=== PATIENT | male | born 1950 | race Caucasian/White ===

== ENCOUNTER 2017-02-01 06:27 | Day surgery (SDC) | payer MEDICARE, BC ==
[2017-02-01] MEDS ORDERED: Lactated Ringers 1,000 ML IV SCH (07:00)
[2017-02-01] MEDS ORDERED: Midazolam 1 MG/ML 2 ML SDV ONE (07:12)
[2017-02-01] MEDS ORDERED: Propofol 200 MG/20 ML SDV ONE (07:12)
[2017-02-01] MEDS ORDERED: fentaNYL 100 MCG/2 ML SDV ONE (07:12)
[2017-02-01 09:37] VITALS: BP 106/65
--- NOTE | 2017-02-01 11:36 | OR ---
DATE OF PROCEDURE: 02/01/2017 POSTOPERATIVE DIAGNOSIS: History of colon polyps. POSTOPERATIVE DIAGNOSES: Unremarkable colonoscopy, history of colon polyps. PROCEDURE PERFORMED: Colonoscopy to the cecum. ANESTHESIA: IV anesthesia with monitored anesthesia care. INDICATION: This 66-year-old white male is referred for a colonoscopy because of history of colon polyps. His last colonoscopic exam he says was done about five years ago. I counseled him for the procedure including risks and alternatives, and he gave his informed consent to proceed. DESCRIPTION OF PROCEDURE: The patient was placed in the left lateral decubitus position. IV anesthesia was administered by the Anesthesia Service. Time-out was held. A rectal exam was performed, which was unremarkable. The flexible video Olympus colonoscope was introduced through his anus, up his rectum, and out his colon all the way to the cecum. Once the cecum was reached, the scope was slowly withdrawn, examining the mucosa throughout. No mucosal abnormalities were noted. The scope was retroflexed in the rectum with the distal rectum appearing unremarkable except for some minor hemorrhoidal tissue. The scope was straightened and removed. He tolerated the procedure well. Arthur Robbins MD /[id number] [email or web address]
== END 2017-02-01 10:10 | disposition home or self-care (01) ==
LOC: JP.SDS 06:27
PROVIDERS: ATTEND Surgery
DX: Z12.11 Encounter for screening for malignant neoplasm of colon (principal); I25.10 Atherosclerotic heart disease of native coronary artery without angina pectoris; I10 Essential (primary) hypertension; Z95.1 Presence of aortocoronary bypass graft
CPT/HCPCS: G0105; J2250; J2704; J3010; J7120

== ENCOUNTER 2020-09-09 10:10 | Emergency (ER) | payer MEDICARE ==
[2020-09-09 10:16] VITALS: BP 104/62; PULSE 81
[2020-09-09] MEDS ORDERED: Sodium Chloride 0.9% 10 ML Syringe FLUSH PRN (10:37)
[2020-09-09] MEDS ORDERED: Ketorolac 30 MG/ML SDV IVPUSH ONE (10:39)
[2020-09-09] MEDS ORDERED: Ondansetron 4 MG/2 ML SDV IVPUSH ONE (10:42)
[2020-09-09] MEDS ORDERED: Lactated Ringers 1,000 ML IV SCH (10:45)
--- NOTE | 2020-09-09 10:45 | EDM.PDOC ---
ED HPI GENERAL MEDICAL PROBLEM - General Chief Complaint: General Stated Complaint: ILL Time Seen by Provider: 09/09/20 10:23 Source of Information: Reports: Patient, RN Notes Reviewed History Limitations: Reports: No Limitations - History of Present Illness INITIAL COMMENTS - FREE TEXT/NARRATIVE: 70-year-old gentleman presents emergency department with a with a syncopal event he is also having other symptoms he was recently diagnosed with COVID-19 approximately 1 week ago yesterday syncopal event for sitting down eating then stood up suddenly fell to the ground estimate he was out for 1 to 2 minutes was not visibly shaking per bystanders. He did admit to feeling significantly nauseated prior to this event, he is also having back pain predominantly left- sided midclavicular line. - Related Data Allergies Allergy/AdvReac Type Severity Reaction Status Date / Time Penicillins Allergy Other Verified 02/01/17 07:25 Sulfa (Sulfonamide Allergy Other Verified 02/01/17 07:25 Antibiotics) Home Meds: Home Meds Aspirin [Adult Low Dose Aspirin EC] 81 mg PO DAILY 01/28/17 [History] Cholecalciferol (Vitamin D3) [Vitamin D3] 1 tab PO BID 01/28/17 [History] Cinnamon [Cinnamon Oil] 1 tab PO DAILY 01/28/17 [History] Metoprolol Succinate [Toprol Xl] 50 mg PO DAILY 01/28/17 [History] Simvastatin [Zocor] 40 mg PO DAILY 01/28/17 [History] glipiZIDE [Glipizide ER] 10 mg PO DAILY 01/28/17 [History] lisinopriL [Prinivil] 2.5 mg PO DAILY 01/28/17 [History] metFORMIN [Glucophage] 1,000 mg PO BID 01/28/17 [History] Past Medical History HEENT History: Reports: Impaired Vision Cardiovascular History: Reports: High Cholesterol, Hypertension Endocrine/Metabolic History: Reports: Diabetes, Type II - Infectious Disease History Infectious Disease History: Reports: Chicken Pox, Measles, Mumps - Past Surgical History Cardiovascular Surgical History: Reports: Coronary Artery Bypass Musculoskeletal Surgical History: Reports: Arthroscopic Knee Social & Family History - Tobacco Use Tobacco Use Status *Q: Never Tobacco User - Caffeine Use Caffeine Use: Reports: Coffee - Recreational Drug Use Recreational Drug Use: No ED ROS GENERAL - Review of Systems Review Of Systems: See Below Constitutional: Reports: Fever, Weakness, Other (Body aches) HEENT: Reports: No Symptoms Respiratory: Reports: No Symptoms Cardiovascular: Reports: Chest Pain (Back midclavicular line left side) GI/Abdominal: Reports: Nausea Musculoskeletal: Reports: Muscle Pain ED EXAM, GENERAL - Physical Exam Exam: See Below Exam Limited By: No Limitations General Appearance: Alert, WD/WN, No Apparent Distress Respiratory/Chest: No Respiratory Distress, Lungs Clear, Normal Breath Sounds, No Accessory Muscle Use, Chest Non-Tender Cardiovascular: Regular Rate, Rhythm, No Murmur Back Exam: Normal Inspection, Full Range of Motion, CVA Tenderness (L), Paraspinal Tenderness. No: CVA Tenderness (R), Muscle Spasm, Vertebral Tenderness Course - Vital Signs Last Recorded V/S: Last Vital Signs Temp 97.5 F 09/09/20 10:14 Pulse 81 09/09/20 10:14 Resp 20 09/09/20 10:14 BP 104/62 09/09/20 10:14 Pulse Ox 96 09/09/20 10:14 - Orders/Labs/Meds Orders: Active Orders 24 hr Category Date Time Status EKG Documentation Completion [RC] ASDIRECTED Care 09/09/20 10:40 Active Peripheral IV Care [RC] . DIRECTED Care 09/09/20 10:38 Active Chest 1V Frontal [CR] Stat Exams 09/09/20 10:39 Taken Lactated Ringers [Ringers, Lactated] 1,000 ml Med 09/09/20 10:45 Active IV ASDIRECTED Sodium Chloride 0.9% [Saline Flush] Med 09/09/20 10:37 Active 10 ml FLUSH ASDIRECTED PRN Isolation [COMM] Stat Oth 09/09/20 10:37 Ordered Peripheral IV Insertion Adult [OM.PC] Routine Oth 09/09/20 10:37 Ordered EKG 12 Lead [EK] Stat Ther 09/09/20 10:39 Ordered Medication Orders Lactated Ringer's (Ringers, Lactated) 1,000 mls @ 999 mls/hr IV ASDIRECTED REAL Last Admin: 09/09/20 11:02 Dose: 999 mls/hr Documented by: TACHO Sodium Chloride (Saline Flush) 10 ml FLUSH ASDIRECTED PRN PRN Reason: Keep Vein Open Last Admin: 09/09/20 11:04 Dose: 10 ml Documented by: TACHO Labs: Laboratory Tests 09/09/20 09/09/20 09/09/20 Range/Units 10:41 10:50 10:50 WBC 4.7 (4.5-11.0) K/uL RBC 5.05 (4.30-5.90) M/uL Hgb 15.3 H (12.0-15.0) g/dL Hct 44.4 (40.0-54.0) % MCV 88 (80-98) fL MCH 30 (27-31) pg MCHC 35 (32-36) % Plt Count 97 L (150-400) K/uL Neut % (Auto) 62 (36-66) % Lymph % (Auto) 23 L (24-44) % [place] % (Auto) 15 H (2-6) % Eos % (Auto) 0 L (2-4) % Baso % (Auto) 0 (0-1) % Sodium 127 L (140-148) mmol/L Potassium 4.6 (3.6-5.2) mmol/L Chloride 93 L (100-108) mmol/L Carbon Dioxide 24 (21-32) mmol/L Anion Gap 14.6 H (5.0-14.0) mmol/L BUN 29 H (7-18) mg/dL Creatinine 1.2 (0.8-1.3) mg/dL Est Cr Clr Drug Dosing 48.40 mL/min Estimated GFR (MDRD) 60 (>60) Glucose 129 H (74-106) mg/dL Lactic Acid (0.4-2.0) mmol/L Calcium 8.8 (8.5-10.1) mg/dL Total Bilirubin 0.8 (0.2-1.0) mg/dL Direct Bilirubin 0.22 H (0.0-0.2) mg/dL Indirect Bilirubin 0.58 AST 24 (15-37) U/L ALT 29 (12-78) U/L Alkaline Phosphatase 49 (46-116) U/L Lactate Dehydrogenase 252 H (85-227) U/L Troponin I (0.000-0.056) ng/mL C-Reactive Protein 2.69 H (0.0-0.3) mg/dL Total Protein 7.0 (6.4-8.2) g/dL Albumin 3.4 (3.4-5.0) g/dL Globulin 3.6 H (2.3-3.5) g/dL Albumin/Globulin Ratio 0.9 L (1.2-2.2) Urine Color Yellow (YELLOW) Urine Appearance Clear (CLEAR) Urine pH 5.5 (5.0-8.0) Ur Specific [place] 1.020 (1.008-1.030) Urine Protein Trace H (NEGATIVE) mg/dL Urine Glucose (UA) 500 H (NEGATIVE) mg/dL Urine Ketones 40 H (NEGATIVE) mg/dL Urine Occult Blood Negative (NEGATIVE) Urine Nitrite Negative (NEGATIVE) Urine Bilirubin Negative (NEGATIVE) Urine Urobilinogen 0.2 (0.2-1.0) EU/dL Ur Leukocyte Esterase Negative (NEGATIVE) Urine RBC Not seen (0-5) Urine WBC 0-5 (0-5) Ur Epithelial Cells Not seen Amorphous Sediment Not seen Urine Bacteria Not seen Urine Mucus Moderate 09/09/20 09/09/20 Range/Units 10:50 10:50 WBC (4.5-11.0) K/uL RBC (4.30-5.90) M/uL Hgb (12.0-15.0) g/dL Hct (40.0-54.0) % MCV (80-98) fL MCH (27-31) pg MCHC (32-36) % Plt Count (150-400) K/uL Neut % (Auto) (36-66) % Lymph % (Auto) (24-44) % [place] % (Auto) (2-6) % Eos % (Auto) (2-4) % Baso % (Auto) (0-1) % Sodium (140-148) mmol/L Potassium (3.6-5.2) mmol/L Chloride (100-108) mmol/L Carbon Dioxide (21-32) mmol/L Anion Gap (5.0-14.0) mmol/L BUN (7-18) mg/dL Creatinine (0.8-1.3) mg/dL Est Cr Clr Drug Dosing mL/min Estimated GFR (MDRD) (>60) Glucose (74-106) mg/dL Lactic Acid 1.4 (0.4-2.0) mmol/L Calcium (8.5-10.1) mg/dL Total Bilirubin (0.2-1.0) mg/dL Direct Bilirubin (0.0-0.2) mg/dL Indirect Bilirubin AST (15-37) U/L ALT (12-78) U/L Alkaline Phosphatase (46-116) U/L Lactate Dehydrogenase (85-227) U/L Troponin I < 0.017 (0.000-0.056) ng/mL C-Reactive Protein (0.0-0.3) mg/dL Total Protein (6.4-8.2) g/dL Albumin (3.4-5.0) g/dL Globulin (2.3-3.5) g/dL Albumin/Globulin Ratio (1.2-2.2) Urine Color (YELLOW) Urine Appearance (CLEAR) Urine pH (5.0-8.0) Ur Specific [place] (1.008-1.030) Urine Protein (NEGATIVE) mg/dL Urine Glucose (UA) (NEGATIVE) mg/dL Urine Ketones (NEGATIVE) mg/dL Urine Occult Blood (NEGATIVE) Urine Nitrite (NEGATIVE) Urine Bilirubin (NEGATIVE) Urine Urobilinogen (0.2-1.0) EU/dL Ur Leukocyte Esterase (NEGATIVE) Urine RBC (0-5) Urine WBC (0-5) Ur Epithelial Cells Amorphous Sediment Urine Bacteria Urine Mucus Meds: Medications Generic Name Dose Route Start Last Admin Trade Name Freq PRN Reason Stop Dose Admin Lactated Ringer's 1,000 mls @ 999 mls/hr 09/09/20 10:45 09/09/20 11:02 Ringers, Lactated IV 999 mls/hr ASDIRECTED REAL Administration Sodium Chloride 10 ml 09/09/20 10:37 09/09/20 11:04 Saline Flush FLUSH 10 ml ASDIRECTED PRN Administration Keep Vein Open Discontinued Medications Generic Name Dose Route Start Last Admin Trade Name Freq PRN Reason Stop Dose Admin Ketorolac Tromethamine 30 mg 09/09/20 10:39 09/09/20 11:01 Toradol IVPUSH 09/09/20 10:40 30 mg ONETIME ONE Administration Ondansetron HCl 4 mg 09/09/20 10:42 09/09/20 11:02 Zofran IVPUSH 09/09/20 10:43 4 mg ONETIME ONE Administration Departure - Departure Time of Disposition: 12:20 Disposition: Home, Self-Care 01 Condition: Fair Clinical Impression: Syncope Qualifiers: Syncope type: unspecified Qualified Code(s): R55 - Syncope and collapse - Discharge Information Instructions: Syncope, [id number] Referrals: Sally Byrnes PA [Primary Care Provider] - Forms: ED Department Discharge Additional Instructions: Continue with your current medications, try Tylenol or Motrin as needed for body aches, continue self quarantine, please followup with your primary care provider in 5-7 days if not better, please call return to the emergency department with worsening of symptoms. Sepsis Event Note (ED) - Evaluation Sepsis Screening Result: No Definite Risk - Focused Exam Vital Signs: Vital Signs Temp Pulse Resp BP Pulse Ox 09/09/20 10:14 97.5 F 81 20 104/62 96 - My Orders Last 24 Hours: My Active Orders 09/09/20 10:37 Sodium Chloride 0.9% [Saline Flush] 10 ml FLUSH ASDIRECTED PRN Isolation [COMM] Stat Peripheral IV Insertion Adult [OM.PC] Routine 09/09/20 10:38 Peripheral IV Care [RC] . DIRECTED 09/09/20 10:39 Chest 1V Frontal [CR] Stat EKG 12 Lead [EK] Stat 09/09/20 10:40 EKG Documentation Completion [RC] ASDIRECTED 09/09/20 10:45 Lactated Ringers [Ringers, Lactated] 1,000 ml IV ASDIRECTED - Assessment/Plan Last 24 Hours: My Active Orders 09/09/20 10:37 Sodium Chloride 0.9% [Saline Flush] 10 ml FLUSH ASDIRECTED PRN Isolation [COMM] Stat Peripheral IV Insertion Adult [OM.PC] Routine 09/09/20 10:38 Peripheral IV Care [RC] . DIRECTED 09/09/20 10:39 Chest 1V Frontal [CR] Stat EKG 12 Lead [EK] Stat 09/09/20 10:40 EKG Documentation Completion [RC] ASDIRECTED 09/09/20 10:45 Lactated Ringers [Ringers, Lactated] 1,000 ml IV ASDIRECTED Plan: Assessment Acuity = acute Site and laterality = syncopal event complicated patient with known history of COVID-19 Etiology = unknown Manifestations = none Location of injury = Home Lab values = CBC unremarkable sodium low at 127 consistent hyponatremia lactic acid normal 1.4 LDH slightly elevated 252 troponin is negative CRP slightly elevated 2.69 urinalysis reveals a specific gravity 1.02 consistent with intravascular volume depletion, chest x-ray I did review films myself I cannot appreciate any acute process, the official read from radiology is pending, EKG demonstrates a sinus rhythm there is some T wave inversions in leads V1, V2, V3 and V4 otherwise no ST elevations or depressions Plan Good improvement with Tylenol and 1 L fluids plan is to continue Tylenol Motrin as needed for body aches continue quarantine for COVID-19 symptoms follow-up with primary care in 5 to 7 days if not better return to ED with worsening of condition This note was dictated using [employer] voice recognition software please call with any questions on syntax or grammar.
--- NOTE | 2020-09-09 12:40 | CR ---
CHEST: Portable 09/09/2020 11:16 AM CLINICAL HISTORY:Left chest pain COMPARISON:None FINDINGS: The heart size, pulmonary vascularity and hilar structures are normal. No infiltrate effusion or pneumothorax is seen. Patient has had previous sternotomy. IMPRESSION: No acute cardiopulmonary process. Previous sternotomy
== END 2020-09-09 13:05 | disposition home or self-care (01) ==
LOC: JP.ED 10:10
DX: R55 Syncope and collapse (principal); E78.00 Pure hypercholesterolemia, unspecified; I10 Essential (primary) hypertension; E11.9 Type 2 diabetes mellitus without complications; Z79.84 Long term (current) use of oral hypoglycemic drugs; Z79.899 Other long term (current) drug therapy; Z79.82 Long term (current) use of aspirin
CPT/HCPCS: 36415; 71045; 80048; 80076; 81001; 83605; 83615; 84484; 85025; 86140; 93005; 96374; 96375; 99284; J1885; J2405; J7120; 93010

== ENCOUNTER 2022-03-05 08:42 | Day surgery (SDC) | payer MEDICARE ==
[2022-03-05] MEDS ORDERED: Propofol 200 MG/20 ML SDV ONE (08:47)
[2022-03-05] MEDS ORDERED: Midazolam 1 MG/ML 2 ML SDV ONE (08:48)
[2022-03-05] MEDS ORDERED: fentaNYL 100 MCG/2 ML SDV ONE (08:48)
[2022-03-05] MEDS ORDERED: Sodium Chloride 0.9% 1,000 ML IV SCH (09:15)
[2022-03-05 12:20] VITALS: BP 108/76; PULSE 72
== END 2022-03-05 12:00 | disposition home or self-care (01) ==
LOC: JP.SDS 08:42
PROVIDERS: ATTEND Surgery
DX: Z12.11 Encounter for screening for malignant neoplasm of colon (principal); D12.5 Benign neoplasm of sigmoid colon; D12.2 Benign neoplasm of ascending colon; I25.10 Atherosclerotic heart disease of native coronary artery without angina pectoris; E11.9 Type 2 diabetes mellitus without complications; I10 Essential (primary) hypertension
CPT/HCPCS: 88305; J2250; J2704; J3010; J7030